=== PATIENT | female | born 1940 | race Caucasian/White ===

== ENCOUNTER 2018-05-02 13:00 | Observation (INO) ==
--- NOTE | 2018-05-02 13:24 | ED ---
HPI General Chief complaint: Chest Pain Stated complaint: Chest Pressure Time Seen by Provider: 05/02/18 13:12 Source: patient Mode of arrival: ambulatory Limitations: no limitations History of Present Illness HPI narrative: Patient is a 77-year-old female who comes in complaining of chest pain. She says she started to have pain this morning under her left breast and now it feels like a pressure in her chest. She says exertion makes the pain worse. Laying still makes the pain better. She takes a baby aspirin daily. She has never had pain like this before. She says she has had some increased gas and some nausea, but no vomiting. She denies any difficulty breathing. She denies cough or cold symptoms. She has a pacemaker, but denies any other cardiac history. Severity is mild to moderate. She did take a baby aspirin, prior to coming in. Related Data Home Medications Medication Instructions Recorded Confirmed aspirin [Aspir-81] 81 mg PO DAILY 05/02/18 05/02/18 citalopram 20 mg PO DAILY 05/02/18 05/02/18 omeprazole 20 mg PO DAILY 05/02/18 05/02/18 Allergies Allergy/AdvReac Type Severity Reaction Status Date / Time adhesive Allergy Intermediate Itching Unverified 05/02/18 13:24 Review of Systems Except as stated in HPI: all other systems reviewed are negative Constitutional Denies chills and Denies fever(s) ENT Denies dizziness Cardiovascular Reports chest pain, Denies dyspnea and Denies dyspnea on exertion Respiratory Denies cough Gastrointestinal Reports nausea and Denies vomiting Musculoskeletal Denies myalgias and Denies arthralgias Integumentary/Breasts Denies change in pigmentation and Denies lesions Neurologic Denies focal weakness PMFSH History History Provided By: Patient Social History Social History Substance History: No History of Abuse Second Hand Smoke Exposure: No Smoking Status: Never smoker How Often Do You Have a Drink Containing Alcohol: Never Recent Travel in [facility] within the Last 8 Weeks: No Recent Out of Country Travel within the Last 8 Weeks: No Exam Narrative Exam Narrative: GENERAL: Awake and alert, no acute distress. SKIN: Focused skin assessment warm/dry. No wounds or signs of infection. HEAD: Atraumatic. Normocephalic. EYES: Pupils equal and round. No scleral icterus. ENT: Mucous membranes pink and moist. NECK: Trachea midline. No JVD. CARDIOVASCULAR: Regular rate and rhythm. No murmur appreciated. RESPIRATORY: No accessory muscle use. Clear to auscultation. Breath sounds equal bilaterally. GASTROINTESTINAL: Abdomen soft, non-tender, nondistended. MUSCULOSKELETAL: No obvious deformities. No clubbing. No cyanosis. No edema. NEUROLOGICAL: Awake and alert. No obvious cranial nerve deficits. Motor grossly within normal limits. Normal speech. PSYCHIATRIC: Appropriate mood and affect; insight and judgment normal. Course Initial Documented Vital Signs Temperature 98.1 F 05/02/18 13:10 Pulse Rate 87 05/02/18 13:10 Respiratory Rate 18 05/02/18 13:10 Blood Pressure 155/80 H 05/02/18 13:10 Pulse Oximetry 99 05/02/18 13:10 Last Documented Vital Signs Temperature 98.1 F 05/02/18 13:10 Pulse Rate 72 05/02/18 13:56 Respiratory Rate 18 05/02/18 13:56 Blood Pressure 114/61 05/02/18 13:56 Pulse Oximetry 99 05/02/18 13:56 Medical Decision Making [facility] Narrative Medical decision making narrative: Patient is a 77-year-old female who comes in complaining of left-sided chest pain. Exam shows no acute abnormalities. IV established, labs sent. Patient connected to the case monitor. Given aspirin. Labs show no acute abnormalities. Troponin is negative. Chest x-ray shows no acute abnormalities. Patient will be placed in chest pain center for further management. Differential Diagnosis Differential Diagnosis: ACS versus NSTEMI versus STEMI Medical Records Medical records reviewed: Yes I reviewed the patient's medical records. Lab Data Lab results reviewed: Yes I reviewed the patient's lab results. Result diagrams: 05/02/18 13:10 05/02/18 13:10 Lab Results 05/02/18 05/02/18 05/02/18 Range/Units 13:10 13:10 13:10 CBC w Diff Auto diff final WBC 8.0 (4.0-11.0) th/mm3 RBC 3.79 L (4.00-5.30) mil/mm3 Hgb 11.5 L (11.6-15.3) gm/dL Hct 33.1 L (35.0-46.0) % MCV 87.5 (80.0-100.0) fL MCH 30.3 (27.0-34.0) pg MCHC 34.7 (32.0-36.0) % RDW 14.3 (11.6-17.2) % Plt Count 323 (150-450) th/mm3 MPV 8.0 (7.0-11.0) fL Neut % (Auto) 64.5 (16.0-70.0) % Lymph % (Auto) 25.2 (9.0-44.0) % [place] % (Auto) 6.1 (0.0-8.0) % Eos % (Auto) 3.6 (0.0-4.0) % Baso % (Auto) 0.6 (0.0-2.0) % Neut # (Auto) 5.2 (1.8-7.7) th/mm3 Lymph # (Auto) 2.0 (1.0-4.8) th/mm3 [place] # (Auto) 0.5 (0.0-0.9) th/mm3 Eos # (Auto) 0.3 (0.0-0.4) th/mm3 Baso # (Auto) 0.0 (0.0-0.2) th/mm3 WBC Differential . Differential Comment . PT 10.2 (9.8-11.6) sec INR 1.0 Ratio APTT 25.2 (24.3-30.1) sec Sodium 137 (136-145) meq/L Potassium 3.6 (3.5-5.1) meq/L Chloride 104 (98-107) meq/L Carbon Dioxide 24.4 (21.0-32.0) meq/L Anion Gap 9 (5-15) meq/L BUN 21 H (7-18) mg/dL Creatinine 0.81 (0.50-1.00) mg/dL Estimated GFR 68 L (>89) mL/min Random Glucose 148 H (74-106) mg/dL Calcium 8.6 (8.5-10.1) mg/dL Total Bilirubin 0.3 (0.2-1.0) mg/dL AST 23 (15-37) U/L ALT 23 (10-53) U/L Alkaline Phosphatase 88 (45-117) U/L Total Creatine Kinase (26-192) U/L CK-MB (CK-2) (0.5-3.6) ng/mL Troponin I Less than 0.02 L (0.02-0.05) ng/mL Total Protein 7.1 (6.4-8.2) g/dL Albumin 3.9 (3.4-5.0) g/dL 05/02/18 Range/Units 13:10 CBC w Diff WBC (4.0-11.0) th/mm3 RBC (4.00-5.30) mil/mm3 Hgb (11.6-15.3) gm/dL Hct (35.0-46.0) % MCV (80.0-100.0) fL MCH (27.0-34.0) pg MCHC (32.0-36.0) % RDW (11.6-17.2) % Plt Count (150-450) th/mm3 MPV (7.0-11.0) fL Neut % (Auto) (16.0-70.0) % Lymph % (Auto) (9.0-44.0) % [place] % (Auto) (0.0-8.0) % Eos % (Auto) (0.0-4.0) % Baso % (Auto) (0.0-2.0) % Neut # (Auto) (1.8-7.7) th/mm3 Lymph # (Auto) (1.0-4.8) th/mm3 [place] # (Auto) (0.0-0.9) th/mm3 Eos # (Auto) (0.0-0.4) th/mm3 Baso # (Auto) (0.0-0.2) th/mm3 WBC Differential Differential Comment PT (9.8-11.6) sec INR Ratio APTT (24.3-30.1) sec Sodium (136-145) meq/L Potassium (3.5-5.1) meq/L Chloride (98-107) meq/L Carbon Dioxide (21.0-32.0) meq/L Anion Gap (5-15) meq/L BUN (7-18) mg/dL Creatinine (0.50-1.00) mg/dL Estimated GFR (>89) mL/min Random Glucose (74-106) mg/dL Calcium (8.5-10.1) mg/dL Total Bilirubin (0.2-1.0) mg/dL AST (15-37) U/L ALT (10-53) U/L Alkaline Phosphatase (45-117) U/L Total Creatine Kinase 131 (26-192) U/L CK-MB (CK-2) 3.0 (0.5-3.6) ng/mL Troponin I (0.02-0.05) ng/mL Total Protein (6.4-8.2) g/dL Albumin (3.4-5.0) g/dL Imaging Data Radiologist's impression: Chest X-Ray 05/02/18 13:12 CONCLUSION: ECG Data EKG Prior to Arrival: No Attestation: I personally reviewed and interpreted this ECG as follows: Interpretation: ECG shows normal sinus rhythm at a rate of 86, no ST elevation or depressions, normal intervals Discharge Plan Discharge Disposition Patient Disposition: 30 Still Patient Discharge Condition Condition: Stable Discharge Details Diagnosis: Atypical chest pain Physicians Team ED Provider: Shy Larsen Primary Care Provider: UNKNOWN, Attending Provider: Joy Degroot Discharge Interventions Interventions: Vital Signs Last Done: 05/02/18 13:56 Status ED Status: Admitted Observation Patient
[2018-05-02 13:27] LABS: Baso % (Auto) 0.6 % (0.0-2.0); Eos # (Auto) 0.3 th/mm3 (0.0-0.4); Eos % (Auto) 3.6 % (0.0-4.0); Hematocrit 33.1 % (35.0-46.0); Hemoglobin 11.5 gm/dL (11.6-15.3); Lymph % (Auto) 25.2 % (9.0-44.0); Mean Corpuscular HGB Conc 34.7 % (32.0-36.0); Mean Corpuscular Hemoglobin 30.3 pg (27.0-34.0); Mean Corpuscular Volume 87.5 fL (80.0-100.0); Mono # (Auto) 0.5 th/mm3 (0.0-0.9); Mono % (Auto) 6.1 % (0.0-8.0); Neut # (Auto) 5.2 th/mm3 (1.8-7.7); Neut % (Auto) 64.5 % (16.0-70.0); Platelet Count 323 th/mm3 (150-450); Red Blood Count 3.79 mil/mm3 (4.00-5.30); Red Cell Distribution Width 14.3 % (11.6-17.2)
[2018-05-02 13:38] LABS: Chloride 104 meq/L (98-107); Potassium 3.6 meq/L (3.5-5.1); Sodium 137 meq/L (136-145)
--- NOTE | 2018-05-02 13:38 | XR ---
EXAM DATE: 05/02/2018 1:34 PM EDT AGE/SEX: 77 years / Female INDICATIONS: Left side chest pain. CLINICAL DATA: This is the patient's initial encounter. Patient reports that signs and symptoms have been present for 1 day and indicates a pain score of 4/10. MEDICAL/SURGICAL HISTORY: None. Pacemaker. COMPARISON: POI, XR CHEST PA AND LAT, 06/15/2016. . FINDINGS: A single AP view of the chest demonstrates the lungs to be symmetrically aerated without evidence of mass, infiltrate or effusion. The cardiomediastinal contours are unremarkable. Osseous structures a re intact. Left AV sequential transvenous pacer remains in place. CONCLUSION: No acute cardiopulmonary disease. Electronically signed by: Reji Leal MD 05/02/2018 1:37 PM EDT
[2018-05-02 13:41] LABS: Calcium 8.6 mg/dL (8.5-10.1)
[2018-05-02 13:42] LABS: Activated Partial Thrombo Time 25.2 sec (24.3-30.1); Albumin 3.9 g/dL (3.4-5.0); Anion Gap 9 meq/L (5-15); Blood Urea Nitrogen 21 mg/dL (7-18); Carbon Dioxide 24.4 meq/L (21.0-32.0); Glucose,Random 148 mg/dL (74-106); Prothrombin Time 10.2 sec (9.8-11.6)
[2018-05-02 13:45] LABS: Alanine Aminotransferase 23 U/L (10-53); Aspartate Aminotransferase 23 U/L (15-37); Glomerular Filtration Rate 68 mL/min (>89)
[2018-05-02 13:47] LABS: Total Protein 7.1 g/dL (6.4-8.2)
[2018-05-02 13:48] LABS: Alkaline Phosphatase 88 U/L (45-117)
[2018-05-02 13:55] LABS: Creatine Kinase 131 U/L (26-192)
[2018-05-02] MEDS ORDERED: Temazepam 15 MG Capsule PO PRN (15:32)
[2018-05-02] MEDS ORDERED: Morphine Inj 4 MG/ML Vial IV.PUSH PRN (15:32)
[2018-05-02] MEDS ORDERED: Acetaminophen 500 MG Tablet PO PRN (15:32)
--- NOTE | 2018-05-02 15:34 | P.HP ---
History of Present Illness Primary Care Physician: UNKNOWN Chief Complaint: Chest pain History of Present Illness: 77-year-old female with known history of syncope, status post pacemaker placement, gastroesophageal reflux, anxiety who presented to the emergency department because of chest discomfort. Patient indicates that she is in normal state of health until she got this morning whenever she stood and start move around she felt a very sharp stabbing pain in the left side of her chest. She sat down and the pain went away. She states that throughout the day every time she got up to exert herself she felt the same type pain which is a sharp, stabbing pain which was a 6/10 on a pain scale without any radiation to neck, back, shoulder, arm. Denied any nausea, vomiting, diaphoresis, shortness of breath, dyspnea. Patient with minimal risk factors to include age , postmenopausal without exogenous hormones, family history of heart disease. Is recommended by the ER physician that the patient be observed in the chest pain center for further evaluation and management. Patient does go to Dr. Green on a regular basis for follow-up on her syncope and pacemaker. Patient is never undergone any cardiac stress testing. - Diagnosis (1) Chest pain Review of Systems All other systems reviewed negative except as stated in HPI Cardiovascular: Reports chest pain PMFSH - History History Provided By: Patient - Medical History Medical History: Medical History (Last Updated 05/02/18 @ 15:29 by SHARMAINE Gill) Gastroesophageal reflux History of hyperlipidemia History of syncope Tachyarrhythmia - Surgical History Surgical History: Surgical History (Last Updated 05/02/18 @ 15:29 by SHARMAINE Gill) History of appendectomy History of hysterectomy History of lumbosacral spine surgery History of permanent cardiac pacemaker placement - Family History Family History: Family History (Last Updated 05/02/18 @ 15:30 by SHARMAINE Gill) Mother Family history of Alzheimer's disease Father History of stroke - Tobacco History Second Hand Smoke Exposure: No Smoking Status: Never smoker - Alcohol History How Often Do You Have a Drink Containing Alcohol: Never - Substance Use History Substance History: No History of Abuse - Travel History Recent Travel in the [place] Within the Last 8 Weeks: No Recent Travel Out of the Country Within the Last 8 Weeks: No - Immunization History Tetanus Immunization: <5 Years Hx Influenza Vaccine This Season: Yes Medications and Allergies Active Medications: Active Medications Sodium Chloride (Ns Flush) 2 ml IV.FLUSH BID TAMEKA Sodium Chloride (Ns Flush) 2 ml IV.FLUSH PRN PRN PRN Reason: FLUSH AFTER USING IV ACCESS Allergies Allergy/AdvReac Type Severity Reaction Status Date / Time adhesive Allergy Intermediate Itching Unverified 05/02/18 13:24 Home Medications Medication Instructions Recorded Confirmed Type aspirin [Aspir-81] 81 mg PO DAILY 05/02/18 05/02/18 History citalopram 20 mg PO DAILY 05/02/18 05/02/18 History omeprazole 20 mg PO DAILY 05/02/18 05/02/18 History Exam Vital signs: Vital Signs 05/02/18 13:10 05/02/18 13:34 05/02/18 13:56 Temperature 98.1 F Pulse Rate 87 87 72 Respiratory Rate 18 18 Blood Pressure 155/80 H 114/61 Pulse Oximetry 99 99 99 05/02/18 15:12 Temperature Pulse Rate 78 Respiratory Rate 18 Blood Pressure 135/72 Pulse Oximetry Intake & Output 05/01/18 05/02/18 05/02/18 18:59 06:59 18:59 Weight 58.7 kg Narrative: GENERAL: Well-developed, well-nourished, in no acute distress. alert and orientated HEENT: Head is normocephalic without any lesions or masses noted. Facial features are symmetric. Eyes: Pupils equal round reactive to light. Extraocular muscles are intact. Conjunctivae were clear. Oropharyngeal: Pharynx without any erythema edema. Tongue is midline without deviation. Buccal mucosa is moist without any masses or lesions NECK: Supple without any masses. Trachea midline no deviation. No JVD, no bruits are appreciated CARDIAC: Regular rhythm, regular rate. S1/S2 are heard. No murmurs gallops or rubs. LUNGS: Clear to auscultation bilaterally. No wheeze, rhonchi or rales. No use of accessory muscles on inspiration or expiration. ABDOMEN: Soft, nontender. Nondistended. Bowel sounds heard in all 4 quadrants. No organomegaly or masses. Negative rebound, negative guarding EXTREMITIES: No edema, pulses are equal bilaterally. No cyanosis or clubbing NEUROLOGY: Mood and affect appear appropriate. Cranial nerves II through XII grossly intact. Muscle strength 5/5 in upper and lower extremities bilaterally. Deep tendon reflexes are 2+ in upper and lower extremities bilaterally. Results - Labs CBC & Chem 7: 05/02/18 13:10 05/02/18 13:10 Labs: Laboratory Results - last 24 hr 05/02/18 05/02/18 05/02/18 13:10 13:10 13:10 CBC w Diff Auto diff final WBC 8.0 RBC 3.79 L Hgb 11.5 L Hct 33.1 L MCV 87.5 MCH 30.3 MCHC 34.7 RDW 14.3 Plt Count 323 MPV 8.0 Neut % (Auto) 64.5 Lymph % (Auto) 25.2 [place] % (Auto) 6.1 Eos % (Auto) 3.6 Baso % (Auto) 0.6 Neut # (Auto) 5.2 Lymph # (Auto) 2.0 [place] # (Auto) 0.5 Eos # (Auto) 0.3 Baso # (Auto) 0.0 WBC Differential . Differential Comment . PT 10.2 INR 1.0 APTT 25.2 Sodium 137 Potassium 3.6 Chloride 104 Carbon Dioxide 24.4 Anion Gap 9 BUN 21 H Creatinine 0.81 Estimated GFR 68 L Random Glucose 148 H Calcium 8.6 Total Bilirubin 0.3 AST 23 ALT 23 Alkaline Phosphatase 88 Total Creatine Kinase CK-MB (CK-2) Troponin I Less than 0.02 L Total Protein 7.1 Albumin 3.9 05/02/18 13:10 CBC w Diff WBC RBC Hgb Hct MCV MCH MCHC RDW Plt Count MPV Neut % (Auto) Lymph % (Auto) [place] % (Auto) Eos % (Auto) Baso % (Auto) Neut # (Auto) Lymph # (Auto) [place] # (Auto) Eos # (Auto) Baso # (Auto) WBC Differential Differential Comment PT INR APTT Sodium Potassium Chloride Carbon Dioxide Anion Gap BUN Creatinine Estimated GFR Random Glucose Calcium Total Bilirubin AST ALT Alkaline Phosphatase Total Creatine Kinase 131 CK-MB (CK-2) 3.0 Troponin I Total Protein Albumin - Imaging Impressions Chest X-Ray 05/02/18 13:12 CONCLUSION: Caprini VTE Risk Assessment Caprini VTE Risk Assessment: Moderate/High Risk (score >= 2) Caprini Risk Assessment Model: Point Value = 1 Point Value = 2 Point Value = 3 Point Value = 5 Age 41-60 Minor surgery BMI > 25 kg/m2 Swollen legs Varicose veins or History of unexplained or recurrent spontaneous Oral contraceptives or hormone replacement Sepsis (< 1 month) Serious lung disease, including pneumonia (< 1 month) Abnormal pulmonary function Acute myocardial infarction Congestive heart failure (< 1 month) History of inflammatory bowel disease Medical patient at bed rest Age 61-74 Arthroscopic surgery Major open surgery (> 45 min) Laparoscopic surgery (> 45 min) Malignancy Confined to bed (> 72 hours) Immobilizing plaster cast Central venous access Age >= 75 History of VTE Family history of VTE Factor V Leiden Prothrombin [id number] Lupus anticoagulant Anticardiolipin antibodies Elevated serum homocysteine Heparin-induced thrombocytopenia Other congenital or acquired thrombophilia Stroke (< 1 month) Elective arthroplasty Hip, pelvis, or leg fracture Acute spinal cord injury (< 1 month) Prophylaxis Regimen: Total Risk Factor Score Risk Level Prophylaxis Regimen 0-1 Low Early ambulation 2 Moderate Order ONE of the following: *Sequential Compression Device (SCD) *Heparin 5000 units SQ BID 3-4 Higher Order ONE of the following medications: *Heparin 5000 units SQ TID *Enoxaparin/Lovenox 40 mg SQ daily (WT < 150 kg, CrCl > 30 mL/min) *Enoxaparin/Lovenox 30 mg SQ daily (WT < 150 kg, CrCl > 10-29 mL/min) *Enoxaparin/Lovenox 30 mg SQ BID (WT < 150 kg, CrCl > 30 mL/min) AND/OR *Sequential Compression Device (SCD) 5 or more Highest Order ONE of the following medications: *Heparin 5000 units SQ TID (Preferred with Epidurals) *Enoxaparin/Lovenox 40 mg SQ daily (WT < 150 kg, CrCl > 30 mL/min) *Enoxaparin/Lovenox 30 mg SQ daily (WT < 150 kg, CrCl > 10-29 mL/min) *Enoxaparin/Lovenox 30 mg SQ BID (WT < 150 kg, CrCl > 30 mL/min) AND *Sequential Compression Device (SCD) Assessment and Plan - Assessment (1) Chest pain Code(s): R07.9 - Chest pain, unspecified Status: Acute - Plan Chest pain, possible stable angina -Patient with risk factors include age, history of hyperlipidemia, postmenopausal without exogenous hormones -We will continue ruled patient out for acute coronary event with serial cardiac enzymes which are thus far negative -Initial EKG shows sinus rhythm without any changes, will continue to trend serial EKGs -Patient did have green tea this morning, unable to pursue stress testing today. Anticipate myocardial perfusion study in the morning to rule out any underlying ischemia. -Aspirin, nitroglycerin as needed -Continue monitor telemetry -Obtain lipid panel DVT prevention -Sequential compression devices
[2018-05-02 18:42] LABS: Creatine Kinase 120 U/L (26-192)
[2018-05-03] MEDS ORDERED: Citalopram 20 MG Tablet PO SCH (09:00)
[2018-05-03] MEDS ORDERED: Pantoprazole Sodium 20 MG DR Tablet PO SCH (09:00)
[2018-05-03] MEDS ORDERED: Aspirin 325 MG Tablet PO SCH (09:00)
[2018-05-03] MEDS ORDERED: Regadenoson Inj 0.4 MG/5 ML Syringe IV.PUSH ONE (10:00)
--- NOTE | 2018-05-03 10:24 | P.PN ---
Subjective Interval history: Follow-up chest pain. Patient seen and examined, ambulating halls. Chest pain has improved. All symptoms have improved. Patient is status post myocardial perfusion scan. Report reviewed showing no ischemia or infarction. EF greater than 70%. Report reviewed with patient. Cholesterol and triglycerides mildly elevated. Started on statin. Prescription given to patient. Patient will be allowed to eat and discharge home. Encouraged follow-up with PCP. Physical Exam Vital signs: Vital Signs 05/02/18 13:10 05/02/18 13:34 05/02/18 13:56 Temperature 98.1 F Pulse Rate 87 87 72 Respiratory Rate 18 18 Blood Pressure 155/80 H 114/61 Pulse Oximetry 99 99 99 05/02/18 15:12 05/02/18 15:20 05/02/18 17:36 Temperature 98.6 F Pulse Rate 78 78 Respiratory Rate 18 18 19 Blood Pressure 135/72 132/75 146/76 H Pulse Oximetry 98 99 05/02/18 17:38 05/02/18 20:00 05/02/18 20:40 Temperature 96.9 F L 97.7 F Pulse Rate 77 66 Respiratory Rate 21 20 Blood Pressure 174/85 H 109/57 L Pulse Oximetry 95 96 96 05/02/18 23:35 05/02/18 23:38 05/03/18 00:00 Temperature 96.7 F L Pulse Rate 65 65 Respiratory Rate 20 20 Blood Pressure 141/64 H Pulse Oximetry 99 05/03/18 04:00 05/03/18 08:00 Temperature 96.6 F L 97.1 F L Pulse Rate 69 71 Respiratory Rate 20 18 Blood Pressure 120/60 132/71 Pulse Oximetry 99 99 Intake & Output 05/02/18 05/03/18 05/03/18 18:59 06:59 18:59 Intake Total 240 / 240 240 / 240 Output Total 0 / 0 Balance 240 / 240 240 / 240 Weight 58.7 kg 58.3 kg Intake: Oral 240 / 240 240 / 240 Output: Stool 0 / 0 Other: # Voids 1 Date of Last Bowel Movement 05/02/18 05/02/18 # Bowel Movements 0 Weight On Admission 58.7 kg Narrative: GENERAL: Well-developed, well-nourished patient in [facility]. SKIN: Warm and dry. No rash. HEAD: Normocephalic. Atraumatic. EYES: Pupils equal and round. No scleral icterus. No injection or drainage. ENT: No nasal bleeding or discharge. Mucous membranes pink and moist. NECK: Supple. Trachea midline. CARDIOVASCULAR: Regular rate and rhythm. S1, S2 noted. RESPIRATORY: No accessory muscle use. Clear to auscultation. Breath sounds equal bilaterally. GASTROINTESTINAL: Abdomen soft, non-tender, nondistended. Normoactive bowel sounds x4. MUSCULOSKELETAL: No obvious deformities. Extremities without clubbing, cyanosis , or edema. NEUROLOGICAL: Awake and alert. No obvious cranial nerve deficits. Motor grossly within normal limits. 5/5 muscle strength in bilateral upper and lower extremities. Normal speech. PSYCHIATRIC: Appropriate mood and affect; insight and judgment normal. Results - Labs CBC & Chem 7: 05/02/18 13:10 05/02/18 13:10 Laboratory Results - last 24 hr 05/02/18 05/02/18 05/02/18 13:10 13:10 13:10 CBC w Diff Auto diff final WBC 8.0 RBC 3.79 L Hgb 11.5 L Hct 33.1 L MCV 87.5 MCH 30.3 MCHC 34.7 RDW 14.3 Plt Count 323 MPV 8.0 Neut % (Auto) 64.5 Lymph % (Auto) 25.2 [place] % (Auto) 6.1 Eos % (Auto) 3.6 Baso % (Auto) 0.6 Neut # (Auto) 5.2 Lymph # (Auto) 2.0 [place] # (Auto) 0.5 Eos # (Auto) 0.3 Baso # (Auto) 0.0 WBC Differential . Differential Comment . PT 10.2 INR 1.0 APTT 25.2 Sodium 137 Potassium 3.6 Chloride 104 Carbon Dioxide 24.4 Anion Gap 9 BUN 21 H Creatinine 0.81 Estimated GFR 68 L Random Glucose 148 H Calcium 8.6 Total Bilirubin 0.3 AST 23 ALT 23 Alkaline Phosphatase 88 Total Creatine Kinase CK-MB (CK-2) Troponin I Less than 0.02 L Total Protein 7.1 Albumin 3.9 05/02/18 05/02/18 13:10 17:45 CBC w Diff WBC RBC Hgb Hct MCV MCH MCHC RDW Plt Count MPV Neut % (Auto) Lymph % (Auto) [place] % (Auto) Eos % (Auto) Baso % (Auto) Neut # (Auto) Lymph # (Auto) [place] # (Auto) Eos # (Auto) Baso # (Auto) WBC Differential Differential Comment PT INR APTT Sodium Potassium Chloride Carbon Dioxide Anion Gap BUN Creatinine Estimated GFR Random Glucose Calcium Total Bilirubin AST ALT Alkaline Phosphatase Total Creatine Kinase 131 120 CK-MB (CK-2) 3.0 Troponin I Less than 0.02 L Total Protein Albumin - Imaging Impressions Chest X-Ray 05/02/18 13:12 CONCLUSION: Assessment and Plan - Assessment (1) Chest pain Code(s): R07.9 - Chest pain, unspecified Status: Acute - Plan Chest pain -Patient with risk factors include age, history of hyperlipidemia, postmenopausal without exogenous hormones -ACS ruled out with serial EKGs and serial troponins. -EKG shows sinus rhythm without any changes. Cardiac telemetry monitored overnight, no reports of any arrhythmias reviewed. -Cholesterol triglycerides elevated. Started on atorvastatin for home. Prescription given. Follow-up with PCP to monitor. -Aspirin continue at home. Patient will be discharged home. Heart healthy diet as tolerated. Activity as tolerated. Follow-up PCP. Prescriptions per discharge orders.
[2018-05-03 10:33] LABS: Chol/HDL Ratio 3.41 Ratio
--- NOTE | 2018-05-03 11:33 | NM ---
EXAM DATE: 05/03/2018 11:24 AM EDT AGE/SEX: 77 years / Female INDICATIONS:Angina. . Syncope. Left chest pain. CLINICAL DATA: This is the patient's initial encounter. Patient reports that signs and symptoms have been present for 1 day and indicates a pain score of 6/10. MEDICAL/SURGICAL HISTORY: Gastroesophageal reflux disease. Hypercholesterolemia. Appendectomy. Hysterectomy. Pacemaker. COMPARISON: No prior exams available for comparison. DOSE: 26.1 mCi Tc 99m Myoview at stress 8.6 mCi [id number] at rest 0.4 mg Lexiscan STRESS SYMPTOMS: Stomach pressure, chest tightness and tingling. EJECTION FRACTION: > 70 % TECHNIQUE: The patient underwent pharmacologic stress with infusion of prescribed dose. Continuous ECG tracing was monitored during stress. Gated SPECT imaging was performed after stress and conventi onal SPECT imaging was performed at rest. The examination was performed on a SPECT/CT scanner, both attenuation and non-corrected datasets were reviewed. FINDINGS: Distribution: The maximum perfused segment at stress is in the anterior lateral wall. Perfusion Study: The pattern of perfusion at stress is within normal limits. There is a summed st ress score of 0. Gated Study: There are intact wall motion and wall thickening without hypokinetic or dyskinetic segm ents. The ejection fraction is calculated at > 70%. RISK CATEGORY: Low (<1% Annual Motality Rate) CONCLUSION: 1. No fixed or reversible wall defect to suggest ischemia or infarction. 2. Normal wall motion and calculated ejection fraction. Electronically signed by: Reji Leal MD 05/03/2018 11:32 AM EDT
--- NOTE | 2018-05-03 12:19 | ECG ---
Date Performed: 05/02/2018 Time Performed: 17:14:08 PTAGE: 77 years EKG: Sinus rhythm NORMAL ECG PREVIOUS TRACING : 05/02/2018 13.08 Since the previous tracing, no significant change noted DOCTOR: Gama Salvador Interpretating Date/Time 05/03/2018 12:19:26
--- NOTE | 2018-05-03 12:20 | ECG ---
Date Performed: 05/02/2018 Time Performed: 13:08:10 PTAGE: 77 years EKG: Sinus rhythm NORMAL ECG WARNING: DATA QUALITY MAY AFFECT INTERPRETATION PREVIOUS TRACING : 05/11/2015 19.55 Since the previous tracing, no significant change not ed DOCTOR: Gama Salvador Interpretating Date/Time 05/03/2018 12:19:39
--- NOTE | 2018-05-03 16:06 | TR ---
Date Performed: 05/03/2018 Time Performed: 10:23:10 DOCTOR: Leonel Salguero DRUG LIST: CLINICAL HISTORY: REASON FOR TEST: Chest pain REASON FOR ENDING: OBSERVATION: CONCLUSION: COMMENTS: Lexiscan stress test was performed under standard four minute protocol. Radionuclide was injected one minute prior to ending the test. No electrocardiographic abormalities were present t o suggest ischemia. Nuclear imaging and interpretation are pending.
== END 2018-05-03 13:17 | disposition home or self-care (01) ==
LOC: PHEDA 13:00 → PH3 13:00 → PHED 13:00 → PH3 15:30
PROVIDERS: ADMIT Hospitalist; ATTEND Hospitalist
DX: Z95.0 Presence of cardiac pacemaker; I20.9 Angina pectoris, unspecified; Z79.82 Long term (current) use of aspirin; R07.89 Other chest pain; E78.1 Pure hyperglyceridemia; K21.9 Gastro-esophageal reflux disease without esophagitis; E78.5 Hyperlipidemia, unspecified